=== PATIENT | female | born 1985 | race Two or more races ===

== ENCOUNTER 2017-04-15 15:16 | Emergency (ER) | payer SELFPAY ==
[~2017-04-15] VITALS: Ht 165.1 cm; Wt 56.7 kg
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
--- NOTE | 2017-04-15 15:22 | NUR ---
DR LYN AT BEDSIDE FOR EVAL.
--- NOTE | 2017-04-15 15:45 | NUR ---
IV LINE STARTED BLOOD DRAWN AND SENT TO LAB.
[2017-04-15 15:54] LABS: BASOPHILS % (AUTO) 0.1 % (0.0-2.0); EOSINOPHILS % (AUTO) 0.4 % (0.0-6.0); HEMATOCRIT 44 % (33-45); HEMOGLOBIN 14.6 g/dL (11.5-14.8); LYMPHOCYTES # (AUTO) 1.7 /CMM (0.8-4.8); LYMPHOCYTES % (AUTO) 15.9 % (20.0-44.0); MEAN CORPUSCULAR HEMOGLOBIN 29 PG (26.0-33.0); MEAN CORPUSCULAR HGB CONC 33 g/dl (31.0-36.0); MEAN CORPUSCULAR VOLUME 86 fL (82-100); MONOCYTES # (AUTO) 0.5 /CMM (0.1-1.30); MONOCYTES % (AUTO) 4.7 % (2.0-12.0); NEUTROPHILS # (AUTO) 8.5 /CMM (1.8-8.9); NEUTROPHILS % (AUTO) 78.9 % (43.0-81.0); PLATELET COUNT (AUTO) 268 /CMM (150-450); RDW COEFFICIENT OF VARIATION 14.8 (11.5-15.0); RED BLOOD CELL COUNT(AUTO) 5.08 MIL/uL (4.0-5.2); WHITE BLOOD COUNT (AUTO) 10.8 K/uL (4.3-11.0)
[2017-04-15] MEDS ORDERED: IV NS 0.9% 1,000 ML BAG IV ONE ×2 (16:00)
[2017-04-15 16:10] LABS: INR 1.09 (0.87-1.13)
[2017-04-15] MEDS ORDERED: LORAZEPAM INJ 2 MG/ML VIAL ONE (16:11)
--- NOTE | 2017-04-15 16:12 | NUR ---
PT IS AGITATED. DR LYN AT BEDSIDE. ATIVAN 2MG IVP GIVEN. ERMD VERBAL ORDER.
[2017-04-15 16:13] LABS: CARBON DIOXIDE 19 mmol/L (21-32); CHLORIDE 107 mmol/L (98-107); CREATININE 2.1 mg/dL (0.6-1.3); GLUCOSE 156 mg/dL (74-106); SODIUM SERUM 146 mmol/L (136-145); UREA NITROGEN, BLOOD 17 mg/dL (7-18)
[2017-04-15 16:18] LABS: POTASSIUM 2.8 mmol/L (3.5-5.1)
[2017-04-15 16:21] LABS: TROPONIN I < 0.017 ng/mL (0.00-0.056)
--- NOTE | 2017-04-15 16:25 | NUR ---
PT IS SLEEPING POST IV ATIVAN. RESTRAINTS REMOVED PER ERMD ORDER. WILL CONT TO MONITOR.
--- NOTE | 2017-04-15 16:27 | NUR ---
PT. IS AGITATED, UNABLE TO DO CT YET.
[2017-04-15] MEDS ORDERED: LORAZEPAM INJ 2 MG/ML VIAL IV ONE (16:30)
[2017-04-15 16:36] LABS: BILIRUBIN,DIRECT 0.2 mg/dL (0.0-0.2); BILIRUBIN,TOTAL 0.7 mg/dL (0.2-1.0)
[2017-04-15 16:37] LABS: ALANINE AMINOTRANSFERASE 21 U/L (12-78); ALBUMIN 4.2 g/dL (3.4-5.0); ALKALINE PHOSPHATASE 70 U/L (46-116); ASPARTATE AMINOTRANSFERASE 30 U/L (15-37); TOTAL PROTEIN, SERUM 9.2 g/dL (6.4-8.2)
[2017-04-15 16:38] LABS: ACETAMINOPHEN 0 ug/ml (10-30); ALCOHOL, BLOOD 1 mg/dL (0-0); SALICYLATE 4.9 mg/dL (2.8-20.0)
[2017-04-15 17:12] LABS: THYROID STIMULATING HORMONE 1.481 uIU/mL (0.358-3.74)
[2017-04-15 17:28] LABS: APPEARANCE,URINE Clear (CLEAR); BILIRUBIN,URINE SMALL (NEGATIVE); BLOOD, URINE Large Ery/uL (NEGATIVE); COLOR,URINE Yellow (YELLOW); KETONES,URINE Trace (NEGATIVE); LEUKOCYTE ESTERASE ,URINE Negative (NEGATIVE); NITRITE, URINE Negative (NEGATIVE); PH,URINE 6.5 (5.0-8.0); PROTEIN,URINE >=300 mg/dl (NEGATIVE); UGLUCOSE Negative (NEGATIVE); UROBILINOGEN,URINE 0.2 EU/dL (0.2)
[2017-04-15 17:33] LABS: BACTERIA,URINE Few /HPF (None Seen); RBC,URINE 21-50 /HPF (0-2); SQUAMOUS EPITHELIAL CELL,UR Few /HPF (None Seen); WBC,URINE 0-2 /HPF (0-3)
[2017-04-15] MEDS ORDERED: POTASSIUM CHLORIDE 10 MEQ/50 ML PREMIXED IVPB FOR PERIPHERAL LINE IV ONE (18:00)
[2017-04-15 19:13] LABS: CREATINE KINASE MB 2.4 ng/mL (0-3.6)
[2017-04-15 19:41] LABS: CREATININE 1.5 mg/dL (0.6-1.3); POTASSIUM 3.5 mmol/L (3.5-5.1)
--- NOTE | 2017-04-15 22:05 | NUR ---
SLEEPING IN BED. TRIED WAKING UP PT FOR HEAD CT SCAN BUT PT GETS AGITATED AND BELLIGERENT REFUSING TO LAY FLAT. DR LYN MADE AWARE.
--- NOTE | 2017-04-15 23:42 | NUR ---
REPORT TO CHARGE NURSE NESSA FOR HARDY.
--- NOTE | 2017-04-16 02:19 | NUR ---
PT NOW A/OX4. PT REQUESTING TO BE DISCHARGED. DR NEGRETE NOTIFIED.
[2017-04-16 06:16] VITALS: BP 116/75
--- NOTE | 2017-04-16 06:16 | NUR ---
PT OK TO DISCHARGE PER DR NEGRETE. IV removed. Catheter intact and site benign. Pressure and 4x4 applied to site. No bleeding noted.Patient discharged to home in stable condition. Written and verbal after care instructions given. Patient verbalizes understanding of instruction.Patient is awake and alert to self, day, and place. PT ambulatory with a steady gait
== END 2017-04-16 06:18 | disposition home or self-care (01) ==
LOC: EDBD 15:19 → ER 15:19
DX: T43.621A Poisoning by amphetamines, accidental (unintentional), initial encounter (principal); F15.959 Other stimulant use, unspecified with stimulant-induced psychotic disorder, unspecified; G93.49 Other encephalopathy; E86.0 Dehydration; E87.2 Acidosis; R00.0 Tachycardia, unspecified; N17.9 Acute kidney failure, unspecified; Y92.89 Other specified places as the place of occurrence of the external cause
CPT/HCPCS: 36415; 71045-TC; 80048-TC; 80076-TC; 80305; 81000-TC; 82550-TC; 82553-TC; 82962-TC; 83605-TC; 84443-TC; 84484-TC; 85025-TC; 85730-TC; 87040-TC; A4606; G0480; J2060; J7030; Z7610

== ENCOUNTER 2018-07-01 22:34 | Emergency (ER) | payer OTHER ==
[~2018-07-01] VITALS: Ht 167.6 cm; Wt 68.9 kg
[2018-07-01 22:44] VITALS: BP 151/102
--- NOTE | 2018-07-01 23:36 | NUR ---
PT UNABLE TO PROVIDE URINE SAMPLE AT THIS TIME. MD CHAVIS
--- NOTE | 2018-07-01 23:45 | NUR ---
URINE COLLECTED AND SENT TO LAB
[2018-07-01 23:53] LABS: APPEARANCE,URINE SL CLOUDY (CLEAR); BILIRUBIN,URINE NEGATIVE (NEGATIVE); BLOOD, URINE NEGATIVE Ery/uL (NEGATIVE); COLOR,URINE YELLOW (YELLOW); KETONES,URINE TRACE (NEGATIVE); LEUKOCYTE ESTERASE ,URINE 1+ (NEGATIVE); NITRITE, URINE NEGATIVE (NEGATIVE); PROTEIN,URINE NEGATIVE (NEGATIVE); UGLUCOSE NEGATIVE (NEGATIVE); UROBILINOGEN,URINE 0.2 EU/dL (0.2)
[2018-07-02 00:13] LABS: SQUAMOUS EPITHELIAL CELL,UR Few /HPF (None Seen); WBC,URINE TOO NUMEROUS TO COUN /HPF (0-3)
[2018-07-02 00:14] LABS: BACTERIA,URINE Moderate /HPF (None Seen)
[2018-07-02] MEDS ORDERED: CEPHALEXIN MONOHYDRATE 500 MG CAPSULE PO ONE ×2 (00:30)
== END 2018-07-02 00:40 | disposition home or self-care (01) ==
LOC: ER 22:38
DX: N39.0 Urinary tract infection, site not specified (principal); J45.909 Unspecified asthma, uncomplicated; F41.9 Anxiety disorder, unspecified; G47.00 Insomnia, unspecified; F32.9 Major depressive disorder, single episode, unspecified; Z98.890 Other specified postprocedural states; Z88.6 Allergy status to analgesic agent
CPT/HCPCS: 81000-TC; 84703-TC; 87086-TC; 87186-TC

== ENCOUNTER 2018-08-04 23:38 | Emergency (ER) | payer OTHER ==
[~2018-08-04] VITALS: Ht 167.6 cm; Wt 59.0 kg
[2018-08-04 23:56] VITALS: BP 141/89
--- NOTE | 2018-08-05 01:38 | NUR ---
CALLED TO BE PLACED IN ROOM, PT REFUSED
--- NOTE | 2018-08-05 01:42 | NUR ---
CALLED PT TO BE PLACED IN ROOM, REFUSED
== END 2018-08-05 01:43 | disposition left against medical advice (07) ==
LOC: ER 23:41
DX: Z53.21 Procedure and treatment not carried out due to patient leaving prior to being seen by health care provider (principal); R07.0 Pain in throat; J45.909 Unspecified asthma, uncomplicated; F41.9 Anxiety disorder, unspecified; F32.9 Major depressive disorder, single episode, unspecified; G47.00 Insomnia, unspecified; Z98.890 Other specified postprocedural states

== ENCOUNTER 2018-11-15 21:27 | Emergency (ER) | payer OTHER ==
[~2018-11-15] VITALS: Ht 165.1 cm; Wt 69.9 kg
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
[2018-11-15] MEDS ORDERED: TDAP [DIPH/PERTUSSIS/TET] 0.5 ML VIAL IM ONE ×2 (23:00→23:56)
[2018-11-15] MEDS ORDERED: ACETAMINOPHEN 325 MG TABLET PO ONE (23:00)
--- NOTE | 2018-11-15 23:00 | NUR ---
URINE COLLECTED AND SENT TO LAB
[2018-11-15] MEDS ORDERED: ACETAMINOPHEN 325 MG TABLET ONE (23:56)
--- NOTE | 2018-11-16 00:08 | NUR ---
Patient given written and verbal discharge instructions. Patient verbalizes understanding of instructions. Patient is ambulatory with steady gait. Refuses offer of half-way placement. Patient given list of available shelters in surrounding area.
[2018-11-16 05:54] VITALS: BP 128/77
== END 2018-11-16 05:54 | disposition home or self-care (01) ==
LOC: ER 21:35
DX: S01.511A Laceration without foreign body of lip, initial encounter (principal); R51 Headache; J45.909 Unspecified asthma, uncomplicated; F31.9 Bipolar disorder, unspecified; F41.9 Anxiety disorder, unspecified; G47.00 Insomnia, unspecified; F17.200 Nicotine dependence, unspecified, uncomplicated; Z98.890 Other specified postprocedural states; Z88.6 Allergy status to analgesic agent; Z88.5 Allergy status to narcotic agent; Y04.8XXA Assault by other bodily force, initial encounter; Y93.89 Activity, other specified; Y92.89 Other specified places as the place of occurrence of the external cause; Y99.8 Other external cause status
CPT/HCPCS: 70450-TC; 70486-TC; 84703-TC; 90715

== ENCOUNTER 2019-04-12 14:44 | Emergency (ER) | payer OTHER ==
[~2019-04-12] VITALS: Ht 165.1 cm; Wt 68.0 kg
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
--- NOTE | 2019-04-12 16:42 | NUR ---
PT MEDICALLY CLEARED. OKAY TO BE BOOKED. Patient discharged to home in stable condition. Written and verbal after care instructions given. Patient verbalizes understanding of instruction. Ambulated with steady gait. In custody by [employer].
[2019-04-12 16:43] VITALS: BP 127/78
== END 2019-04-12 16:30 ==
LOC: ER 14:45
DX: R45.86 Emotional lability (principal); F17.200 Nicotine dependence, unspecified, uncomplicated; F41.9 Anxiety disorder, unspecified; G47.00 Insomnia, unspecified; F32.9 Major depressive disorder, single episode, unspecified; Z98.890 Other specified postprocedural states; Z88.6 Allergy status to analgesic agent; Z60.2 Problems related to living alone

== ENCOUNTER 2020-07-08 19:22 | Emergency (ER) | payer OTHER ==
[~2020-07-08] VITALS: Ht 167.6 cm; Wt 68.0 kg
--- NOTE | 2020-07-08 19:38 | NUR ---
ATTEMPT #1: CALLED X3. PT NO ONE ANSWERED IN WR.
[2020-07-08 19:52] VITALS: BP 122/63
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
[2020-07-08] MEDS ORDERED: CEPH500C2 PO (21:07)
== END 2020-07-08 21:14 | disposition home or self-care (01) ==
LOC: ER 19:28
DX: S60.445A External constriction of left ring finger, initial encounter (principal); R45.86 Emotional lability; J45.909 Unspecified asthma, uncomplicated; F41.9 Anxiety disorder, unspecified; F32.9 Major depressive disorder, single episode, unspecified; G47.00 Insomnia, unspecified; F17.200 Nicotine dependence, unspecified, uncomplicated; Z98.890 Other specified postprocedural states; Z88.6 Allergy status to analgesic agent; Z60.2 Problems related to living alone; W49.04XA Ring or other jewelry causing external constriction, initial encounter; Y93.89 Activity, other specified; Y92.89 Other specified places as the place of occurrence of the external cause; Y99.8 Other external cause status